=== PATIENT | male | born 1995 | race Caucasian/White ===

== ENCOUNTER 2016-11-27 18:26 | Emergency (ER) | payer MEDICAID ==
[~2016-11-27] VITALS: Ht 177.8 cm; Wt 95.3 kg
[2016-11-27 18:57] VITALS: BP 132/73
[2016-11-27] MEDS ORDERED: IBUPROFEN 600 MG TABLET PO ONE ×2 (19:27→19:30)
== END 2016-11-27 19:36 | disposition home or self-care (01) ==
LOC: ER 18:31
DX: J06.9 Acute upper respiratory infection, unspecified (principal)
CPT/HCPCS: 99282; A4606; Z7610

== ENCOUNTER 2018-10-29 17:39 | Emergency (ER) | payer MEDICAID, OTHER ==
[~2018-10-29] VITALS: Ht 180.3 cm; Wt 97.1 kg
[2018-10-29 17:49] VITALS: BP 139/82
[2018-10-29] MEDS ORDERED: HYDROCODONE/APAP 10/325MG 1 EA TABLET ONE (18:08)
[2018-10-29] MEDS ORDERED: HYDROCODONE/APAP 10/325MG 1 EA TABLET PO ONE (18:30)
== END 2018-10-29 18:14 | disposition home or self-care (01) ==
LOC: ER 17:49
DX: M54.5 Low back pain (principal)

== ENCOUNTER 2018-12-23 20:52 | Emergency (ER) | payer MEDICAID ==
[~2018-12-23] VITALS: Ht 177.8 cm; Wt 97.5 kg
[2018-12-23 21:01] VITALS: BP 153/92
[2018-12-23 21:49] LABS: APPEARANCE,URINE CLEAR (CLEAR); BILIRUBIN,URINE 2+ (NEGATIVE); BLOOD, URINE TRACE-INTA Ery/uL (NEGATIVE); COLOR,URINE YELLOW (YELLOW); KETONES,URINE 2+ (NEGATIVE); LEUKOCYTE ESTERASE ,URINE NEGATIVE (NEGATIVE); NITRITE, URINE NEGATIVE (NEGATIVE); PH,URINE 5.5 (5.0-8.0); PROTEIN,URINE TRACE mg/dl (NEGATIVE); UGLUCOSE NEGATIVE (NEGATIVE); UROBILINOGEN,URINE 0.2 EU/dL (0.2)
[2018-12-23 21:55] LABS: BACTERIA,URINE None seen /HPF (None Seen); RBC,URINE 0-2 /HPF (0-2); SQUAMOUS EPITHELIAL CELL,UR Few /HPF (None Seen); WBC,URINE 0-2 /HPF (0-3)
== END 2018-12-23 22:18 | disposition home or self-care (01) ==
LOC: ER 20:55
DX: M54.5 Low back pain (principal); G89.29 Other chronic pain
CPT/HCPCS: 81001; 99283; A4606; 81000-TC

== ENCOUNTER 2022-04-16 10:40 | Emergency (ER) | payer MEDICAID, OTHER ==
[~2022-04-16] VITALS: Ht 177.8 cm; Wt 93.0 kg
[2022-04-16 10:54] VITALS: BP 140/73
[2022-04-16] MEDS ORDERED: IBUPROFEN 600 MG TABLET ONE (11:29)
[2022-04-16] MEDS ORDERED: IBUPROFEN 600 MG TABLET PO ONE (11:30)
[2022-04-16] MEDS ORDERED: IBUP-1957 PO ×2 (11:36→12:04)
--- NOTE | 2022-04-16 12:19 | NUR ---
Patient discharged to home in stable condition. Written and verbal after care instructions given. Patient verbalizes understanding of instruction.
== END 2022-04-16 12:19 | disposition home or self-care (01) ==
LOC: ER 10:54
DX: S93.401A Sprain of unspecified ligament of right ankle, initial encounter (principal); X50.1XXA Overexertion from prolonged static or awkward postures, initial encounter; Y93.67 Activity, basketball; Y92.89 Other specified places as the place of occurrence of the external cause; Y99.8 Other external cause status
CPT/HCPCS: 73610-TC

== ENCOUNTER 2022-08-20 23:51 | Emergency (ER) | payer MEDICAID ==
[~2022-08-20] VITALS: Ht 177.8 cm; Wt 92.1 kg
[~2022-08-20 23:51] MED LIST: IBUP-1957 PO
[2022-08-21 00:02] VITALS: BP 151/78
[2022-08-21] MEDS ORDERED: ONDANSETRON HCL/PF - ER 4 MG/2 ML VIAL IV ONE (00:30)
[2022-08-21] MEDS ORDERED: IV NS 0.9% 1,000 ML BAG IV ONE (00:30)
[2022-08-21] MEDS ORDERED: ONDANSETRON HCL/PF 4 MG/2 ML VIAL ONE (00:31)
[2022-08-21 00:44] LABS: BASOPHILS % (AUTO) 0.3 % (0.0-2.0); EOSINOPHILS % (AUTO) 1.3 % (0.0-6.0); HEMATOCRIT 48 % (39-51); HEMOGLOBIN 16.9 g/dL (13.5-17.5); LYMPHOCYTES % (AUTO) 21.1 % (20.0-44.0); MEAN CORPUSCULAR HGB CONC 35 g/dl (31.0-36.0); MEAN CORPUSCULAR VOLUME 91 fL (80-96); MONOCYTES # (AUTO) 0.8 K/uL (0.1-1.30); MONOCYTES % (AUTO) 5.4 % (2.0-12.0); NEUTROPHILS # (AUTO) 10.3 K/uL (1.8-8.9); NEUTROPHILS % (AUTO) 71.9 % (43.0-81.0); PLATELET COUNT (AUTO) 331 K/uL (150-450); RED BLOOD CELL COUNT(AUTO) 5.32 MIL/uL (4.5-6.0); WHITE BLOOD COUNT (AUTO) 14.3 K/uL (4.3-11.0)
[2022-08-21 00:59] LABS: CALCIUM, SERUM 9.4 mg/dL (8.5-10.1); CREATININE 1.1 mg/dL (0.6-1.3); POTASSIUM 3.4 mmol/L (3.5-5.1)
[2022-08-21 01:03] LABS: ALBUMIN 4.7 g/dL (3.4-5.0); BILIRUBIN,DIRECT 0.1 mg/dL (0.0-0.2); BILIRUBIN,TOTAL 0.3 mg/dL (0.2-1.0)
[2022-08-21] MEDS ORDERED: ONDA4TAB5 PO (02:52)
== END 2022-08-21 03:07 | disposition home or self-care (01) ==
LOC: ER 23:53
DX: R11.0 Nausea (principal); Z79.899 Other long term (current) drug therapy
CPT/HCPCS: 99283; 96374; 96361; 85025; 80048; 83690; 80076; 36415; J2405; J7030

== ENCOUNTER 2023-08-25 03:58 | Emergency (ER) | payer MEDICAID ==
[~2023-08-25] VITALS: Ht 177.8 cm; Wt 90.7 kg
[~2023-08-25 03:58] MED LIST changes: +ONDA4TAB5 PO
[2023-08-25] MEDS ORDERED: dexaMETHasone SOD PHOSPHATE 10 MG/ML VIAL MC STA (04:29)
[2023-08-25] MEDS ORDERED: ONDANSETRON 4 MG TAB.RAPDIS SL ONE (04:30)
[2023-08-25] MEDS ORDERED: ONDANSETRON 4 MG TAB.RAPDIS ONE (04:33)
[2023-08-25] MEDS ORDERED: ONDA4TAB11 PO (04:39)
[2023-08-25] MEDS ORDERED: AMOX-430 PO (04:39)
[2023-08-25 05:09] VITALS: BP 128/73; TEMP 98.9; O2SAT 99
== END 2023-08-25 05:10 | disposition home or self-care (01) ==
LOC: EDUNIT# 03:58 → ER 04:04
DX: J02.0 Streptococcal pharyngitis (principal); R11.0 Nausea; R05.9 Cough, unspecified; M79.10 Myalgia, unspecified site
CPT/HCPCS: 99283; J1100; Q0162